=== PATIENT | female | born 1960 | race Caucasian/White ===

== ENCOUNTER 2018-07-09 16:33 | Emergency (ER) | payer MEDICARE ==
[~2018-07-09] VITALS: Ht 154.9 cm; Wt 70.3 kg
[2018-07-09] MEDS ORDERED: LEVOTHYROXINE PO (16:40)
[2018-07-09] MEDS ORDERED: PARO30 PO (16:40)
[2018-07-09] MEDS ORDERED: GABA300 PO (16:41)
[2018-07-09] MEDS ORDERED: QUET200 PO (16:41)
[2018-07-09] MEDS ORDERED: ACYCLOVIR (16:42)
[2018-07-09] MEDS ORDERED: IBUP800 PO (17:07)
== END 2018-07-09 17:17 | disposition home or self-care (01) ==
LOC: ER 16:33
DX: M79.671 Pain in right foot (principal); Z79.899 Other long term (current) drug therapy; F17.210 Nicotine dependence, cigarettes, uncomplicated
CPT/HCPCS: 73630; 96372; 99283-25; J1885

== ENCOUNTER 2023-06-11 22:22 | Emergency (ER) | payer MEDICARE, OTHER ==
[~2023-06-11] VITALS: Ht 154.9 cm; Wt 50.4 kg
[~2023-06-11 22:22] MED LIST: ACYCLOVIR; GABA300 PO; IBUP800 PO; LEVOTHYROXINE PO; PARO30 PO; QUET200 PO
[2023-06-11 23:06] LABS: BASOPHILS ABSOLUTE AUTO 0.06 K/mm3 (0.00-0.23); BASOPHILS PERCENT AUTO 1 % (0-2); EOSINOPHILS ABSOLUTE AUTO 0.18 K/mm3 (0.00-0.68); EOSINOPHILS PERCENT AUTO 2 % (0-6); Hematocrit 32.2 % (33.0-51.0); IMMATURE GRAN ABSOLUTE AUTO 0.02 K/mm3 (0.00-0.10); IMMATURE GRAN PERCENT AUTO 0 % (0-1); LYMPHOCYTES ABSOLUTE AUTO 2.51 K/mm3 (0.84-5.20); LYMPHOCYTES PERCENT AUTO 26 % (21-46); MONOCYTES ABSOLUTE AUTO 0.96 K/mm3 (0.16-1.47); MONOCYTES PERCENT AUTO 10 % (4-13); Mean Corpuscular HGB 33.6 pg (26.0-34.0); Mean Corpuscular HGB Conc 34.2 g/dL (31.5-36.5); Mean Corpuscular Volume 99 fL (80-100); Mean Platelet Volume 8.8 fL (9.1-12.4); NEUTROPHILS ABSOLUTE AUTO 5.92 K/mm3 (1.96-9.15); NEUTROPHILS PERCENT AUTO 61 % (41-73); Platelet Count 357 K/mm3 (150-400); RDW Coefficient Variation 14.5 % (11.7-14.2); RDW Standard Deviation 52.8 fL (35.1-46.3); Red Blood Cell Count 3.27 M/mm3 (3.80-5.20); White Blood Cell Count 9.65 K/mm3 (4.00-11.30)
[2023-06-11 23:25] LABS: Albumin, Blood 3.2 g/dL (3.4-5.0); Bilirubin, Total 0.4 mg/dL (0.1-1.0); Bun/Creatinine Ratio 8.6 (12.0-20.0); Calcium, Blood 8.8 mg/dL (8.5-10.1); Creatinine, Blood 0.81 mg/dL (0.40-1.00); Globulin, Blood 3.1 g/dL (2.2-4.0); Potassium, Blood 4.2 mmol/L (3.5-5.5); Total Protein, Blood 6.3 g/dL (6.4-8.2)
[2023-06-12 01:09] LABS: Source, Urine Clean Catch
[2023-06-12 01:52] LABS: Appearance, Urine Clear (Clear); Bilirubin, Urine Neg (Neg); Blood, Urine 2+ (Neg); Color, Urine Yellow (P-Yellow); Glucose Qualitative, Urine Neg (Neg); Ketones, Urine Neg (Neg); Leukocyte Esterase, Urine 1+ (Neg); Nitrite, Urine Pos (Neg); Protein, Urine Neg (Neg); Urobilinogen, Urine NORM (Normal)
[2023-06-12 02:54] LABS: Bacteria Many /hpf; Squamous Epithelial Cells Few /hpf (Few)
[2023-06-12 03:00] VITALS: BP 101/67
[2023-06-12] MEDS ORDERED: ONDA4ODT MM (03:40)
[2023-06-12] MEDS ORDERED: CEPH500 PO (03:40)
== END 2023-06-12 03:50 | disposition home or self-care (01) ==
LOC: ER 22:22
PROVIDERS: Student in an Organized Health Care Education/Training Program
DX: N39.0 Urinary tract infection, site not specified (principal); R11.2 Nausea with vomiting, unspecified; E03.9 Hypothyroidism, unspecified; F17.210 Nicotine dependence, cigarettes, uncomplicated; Z79.899 Other long term (current) drug therapy
CPT/HCPCS: 80053; 81001; 83690; 85025; 87077; 87086; 87186; 93005; 93010; 96374; 99284; A9270; J0696; J7030

== ENCOUNTER 2024-12-13 07:27 | Day surgery (SDC) | payer MEDICARE, OTHER ==
[~2024-12-13] VITALS: Ht 154.9 cm; Wt 57.2 kg
[~2024-12-13 07:27] MED LIST changes: +Bupivacaine 0.75% Inj 30 ML Vial ONE; +CENTRUM SILVER1 EAC2; +CEPH500 PO; +ESTROGEN; +Erythromycin 0.5% Opth Oint 1 gm ONE; +LEVOTHYROXINE50 MC9; +Lidocaine 2%-Epineph 1:100000 20 ML MDV ONE; +NS 500 ML IV ONE; +OMEP20ER PO; +ONDA4ODT MM; +Tetracaine HCl 1% 10MG/ML 2ML Amp ONE
[2024-12-13] MEDS ORDERED: Amoxicillin500 MG PO (08:18)
[2024-12-13] MEDS ORDERED: NS 500 ML IV ONE (08:29)
--- NOTE | 2024-12-13 08:31 | NUR ---
12/13/24 0831 Liliane Enamorado PER PATIENT SHE HAS A TOOTH INFECTION THAT SHE WAS STARTED ON ANTIBIOTICS FOR 4 DAYS AGO[address] RN INFOR[address] FUENTES.
[2024-12-13] MEDS ORDERED: propofoL 40 ML IV ONE (09:13)
[2024-12-13] MEDS ORDERED: Midazolam HCl 1MG / ML 2ML Vial ONE (09:21)
[2024-12-13] MEDS ORDERED: Phenylephrine HCl 100 MCG/ML-NS 10MLSYR (1MG/10ML) ONE ×2 (09:33→09:49)
[2024-12-13] MEDS ORDERED: Ketorolac Tromethamine 30mg Vial ONE (09:41)
--- NOTE | 2024-12-13 10:27 | NUR ---
12/13/24 1027 Justine Cool DECREASED FROM 4L TO 2L PATIENT TOLERATED WELL, O2 98%
[2024-12-13 10:47] VITALS: BP 107/79
--- NOTE | 2024-12-13 10:48 | NUR ---
12/13/24 1048 Justine Cool REVIEWED DISCHARGE INSTRUCTIONS, CLARIFIED APPLYING OINTMENT BID THREE TIMES WITH PATIENT. PATIENT VERBALIZED UNDERSTANDING WITH READBACK.
== END 2024-12-13 10:50 | disposition home or self-care (01) ==
LOC: ORSCSDS 07:27
PROVIDERS: Ophthalmology
PROC: 080N0ZZ Alteration of Right Upper Eyelid, Open Approach (ICD-10-PCS; principal; 2024-12-13 09:00)
PROC: 080P0ZZ Alteration of Left Upper Eyelid, Open Approach (ICD-10-PCS; principal; 2024-12-13 09:00)
DX: H02.831 Dermatochalasis of right upper eyelid (principal); H02.834 Dermatochalasis of left upper eyelid; E07.9 Disorder of thyroid, unspecified; Z79.899 Other long term (current) drug therapy; F17.210 Nicotine dependence, cigarettes, uncomplicated
CPT/HCPCS: A9270; J1885; J2250; J2371; J2704; J7040